=== PATIENT | female | born 1925 | race Caucasian/White ===

== ENCOUNTER 2017-08-01 11:45 | Emergency (ER) | payer SELFPAY ==
[~2017-08-01] VITALS: Ht 157.5 cm; Wt 73.0 kg
[2017-08-01 11:53] VITALS: Ht 157.5 cm; Wt 73.0 kg
== END 2017-08-01 16:41 | disposition left against medical advice (07) ==
LOC: E/R 11:45
DX: Z53.21 Procedure and treatment not carried out due to patient leaving prior to being seen by health care provider (principal)